=== PATIENT | male | born 1975 | race Caucasian/White ===

== ENCOUNTER → 2020-07-01 | Outpatient (CLI) | payer BC ==
[~2020-07-01] MED LIST: AMOXICILLIN 8751 TAB PO; LOPRESSOR 225 MG/TAB PO; NORCO 325 MG-51 TAB PO; ROXICODONE15 MG PO; TOPROL XL 50MG50 MG PO; ZESTRIL 10MG10 MG PO; ZESTRIL 5MG5 MG PO; ZOFRAN 4MG T4 MG/TAB PO
== END ==
LOC: COL.VAS 12:17
DX: I16.0 Hypertensive urgency (principal)